=== PATIENT | female | born 1945 | race Caucasian/White ===

== ENCOUNTER 2024-10-30 16:16 | Outpatient (AMB) | payer MEDICARE, SELFPAY | END 2024-10-30 16:18 | disposition home or self-care (01) | LOC: HO.HMGAL 16:16 | PROVIDERS: PCP Internal Medicine; Visit Provider Registered Nurse Emergency | DX: J30.89 Other allergic rhinitis (principal) | CPT/HCPCS: 95117; 95165 ==

== ENCOUNTER 2024-12-25 14:59 | Outpatient (AMB) | payer MEDICARE, SELFPAY | END 2024-12-25 15:00 | disposition home or self-care (01) | LOC: HO.HMGAL 14:59 | PROVIDERS: PCP Family Medicine; Visit Provider Registered Nurse Emergency | DX: J30.89 Other allergic rhinitis (principal) | CPT/HCPCS: 95117; 95165 ==